=== PATIENT | female | born 1990 | race Caucasian/White ===

== ENCOUNTER 2017-08-03 23:41 | Emergency (ER) | payer MEDICAID ==
[2017-08-03 23:49] VITALS: O2SAT 96
[2017-08-04 00:18] LABS: % IMMATURE GRANULYOCYTES 0.3 % (0.0-1.1); ABSOLUTE IMMATURE GRANULOCYTES 0.04 10^3/uL (0.00-0.10); ADD DIFF? NO; ADD MORPH? NO; ADD SCAN? NO; ATYPICAL LYMPHOCYTE FLAG 10 (0-99); FRAGMENT RBC FLAG 0 (0-99); HEMATOCRIT 38.3 % (38.0-47.0); HEMOGLOBIN 13.6 g/dL (12.6-16.3); LEFT SHIFT FLG 0 (0-99); LIPEMIA HEMOLYSIS FLAG 90 (0-99); MEAN CELL HEMOGLOBIN 31.3 pg (27.9-34.1); MEAN CELL HEMOGLOBIN CONCENTR. 35.5 g/dL (32.4-36.7); MEAN PLATELET VOLUME 10.8 fL (8.7-11.7); PLATELET CLUMPS FLAG 0 (0-99); PLATELET COUNT 190 10^3/uL (150-400); RED BLOOD CELL COUNT 4.35 10^6/uL (4.18-5.33); RED CELL DISTRIBUTION WIDTH 12.4 % (11.5-15.2)
[2017-08-04] MEDS ORDERED: NS 1,000 ML IV ONE (00:37)
[2017-08-04 00:40] LABS: ANION GAP 12 mEq/L (8-16); CALCIUM 9.4 mg/dL (8.5-10.4); CARBON DIOXIDE 26 mEq/l (22-31); CHLORIDE 99 mEq/L (97-110); GLOMERULAR FILTRATION RATE > 60; GLUCOSE 109 mg/dL (70-100); POTASSIUM 3.2 mEq/L (3.5-5.2); SODIUM 137 mEq/L (134-144)
[2017-08-04] MEDS ORDERED: KETOROLAC 30 MG/1 ML SDV IVP ONE (01:21)
[2017-08-04] MEDS ORDERED: ACETAMINOPHEN 500 MG TAB PO ONE (01:21)
[2017-08-04] MEDS ORDERED: KETOROLAC 15 MG/1 ML SDV ONE (01:22)
[2017-08-04] MEDS ORDERED: ACETAMINOPHEN 500 MG TAB ONE (01:22)
--- NOTE | 2017-08-04 01:23 | EDPHY ---
H & P Stated Complaint: abd pain, fever/chills Time Seen by Provider: 08/04/17 01:06 HPI/ROS: HPI The patient presents with abdominal pain which began 2 days ago and became constant this morning at about 5:00 a.m.. The pain is in her lower abdomen, right greater than left and is worse with movement. She has taken ibuprofen and tramadol without any improvement in her symptoms. She did begin vomiting today. She has no prior history of similar pain. She denies any vaginal bleeding or discharge. She has had normal bowel movements lately. She feels feverish. She describes an abnormal sensation when voiding, however no shashank dysuria or hematuria. REVIEW OF SYSTEMS Constitutional: No fever, no chills. Eyes: No discharge. ENT: No sore throat. Cardiovascular: No chest pain, no palpitations. Respiratory: No cough, no shortness of breath. Gastrointestinal: No abdominal pain, no vomiting. Genitourinary: No hematuria. Musculoskeletal: No back pain. Skin: No rashes. Neurological: No headache. PMHx: IBS, rheumatoid arthritis, uses medical marijuana Soc Hx: Housed, here with her brother FHx: PHYSICAL General Appearance: Alert, no distress Eyes: Pupils equal and round no pallor or injection ENT, Mouth: Mucous membranes moist Respiratory: There are no retractions, lungs are clear to auscultation Cardiovascular: Regular rate and rhythm Gastrointestinal: Abdomen is soft, slightly distended, tender in right lower greater than left lower quadrant Neurological: A&O, moves all extremities Skin: Warm and dry, no rashes Musculoskeletal: Neck is supple non tender Extremities: symmetrical, full range of motion Psychiatric: Patient is oriented X 3, there is no agitation Source: Patient Exam Limitations: No limitations - Personal History LMP (Females 10-55): 15-21 Days Ago Current Tetanus/Diphtheria Vaccine: No - Medical/Surgical History Hx Asthma: No Hx Chronic Respiratory Disease: No Hx Diabetes: No Hx Cardiac Disease: No Hx Renal Disease: No Hx Cirrhosis: No Hx Alcoholism: No Hx HIV/AIDS: No Hx Splenectomy or Spleen Trauma: No Other PMH: PMHx: RA, IBS. PSHx: 2 c sections, tubal ligation, LEAP x 2 - Social History Smoking Status: Never smoked Constitutional: Initial Vital Signs Temperature (C) 37.8 C 08/03/17 23:45 Heart Rate 72 08/03/17 23:45 Respiratory Rate 14 08/03/17 23:45 Blood Pressure 129/79 H 08/03/17 23:45 O2 Sat (%) 96 08/03/17 23:45 O2 Delivery Mode Room Air Allergies/Adverse Reactions: Penicillins Allergy (Verified 08/03/17 23:45) Sulfa (Sulfonamide Antibiotics) Allergy (Verified 08/03/17 23:45) Home Medications: Medication Instructions Recorded Fluconazole [Diflucan] 200 mg PO ONCE #1 tablet 08/04/17 Nitrofurantoin Monohyd/M-Cryst 100 mg PO BID #14 capsule 08/04/17 [Macrobid 100 mg Capsule] Medical Decision Making - Diagnostics Imaging Results: Ultrasound right lower quadrant and pelvis demonstrates normal appearing appendix, no free fluid, findings consistent with polycystic ovarian syndrome, discussed with Dr. Ross of Radiology. Imaging: Discussed imaging studies w/ body recall instructor Radiologist Differential Diagnosis: This is a 27-year-old female who presents with 2 days now of progressive lower abdominal pain associated with subjective fever and vomiting. On exam, she is tender in the right lower quadrant. Differential diagnosis includes appendicitis, ovarian cyst, tubo-ovarian abscess , ovarian torsion. In the emergency department, patient was given IV fluids for vomiting as well as medication for pain. She had improvement in her symptoms to the point of complete resolution. Labs were checked and did reveal a mild leukocytosis. UA showed signs of infection. She had ultrasound performed which showed some signs of PCOS, however no acute pathology was identified. Appendix was visualized and was normal. On re-examination, her abdominal exam was benign. She feels well enough to go home and will be discharged. I have given her a dose of ceftriaxone here for presumed cystitis and will discharge her with Macrobid. She is advised to return if her pain returns in any way. I have given her follow-up for OBGYN for this finding of possible PCOS. - Data Points Laboratory Results: Laboratory Results 08/04/17 00:10 08/04/17 00:10 08/04/17 08/04/17 08/04/17 00:10 00:10 00:10 WBC 12.73 10^3/uL H 10^3/uL (3.80-9.50) RBC 4.35 10^6/uL 10^6/uL (4.18-5.33) Hgb 13.6 g/dL g/dL (12.6-16.3) Hct 38.3 % % (38.0-47.0) MCV 88.0 fL fL (81.5-99.8) MCH 31.3 pg pg (27.9-34.1) MCHC 35.5 g/dL g/dL (32.4-36.7) RDW 12.4 % % (11.5-15.2) Plt Count 190 10^3/uL 10^3/uL (150-400) MPV 10.8 fL fL (8.7-11.7) Neut % (Auto) 87.3 % H % (39.3-74.2) Lymph % (Auto) 5.3 % L % (15.0-45.0) [place] % (Auto) 6.7 % % (4.5-13.0) Eos % (Auto) 0.2 % L % (0.6-7.6) Baso % (Auto) 0.2 % L % (0.3-1.7) Nucleat RBC Rel Count 0.0 % % (0.0-0.2) Absolute Neuts (auto) 11.10 10^3/uL H 10^3/uL (1.70-6.50) Absolute Lymphs (auto) 0.68 10^3/uL L 10^3/uL (1.00-3.00) Absolute Monos (auto) 0.85 10^3/uL H 10^3/uL (0.30-0.80) Absolute Eos (auto) 0.03 10^3/uL 10^3/uL (0.03-0.40) Absolute Basos (auto) 0.03 10^3/uL 10^3/uL (0.02-0.10) Absolute Nucleated RBC 0.00 10^3/uL 10^3/uL (0-0.01) Immature Gran % 0.3 % % (0.0-1.1) Immature Gran # 0.04 10^3/uL 10^3/uL (0.00-0.10) Sodium 137 mEq/L mEq/L (134-144) Potassium 3.2 mEq/L L mEq/L (3.5-5.2) Chloride 99 mEq/L mEq/L (97-110) Carbon Dioxide 26 mEq/l mEq/l (22-31) Anion Gap 12 mEq/L mEq/L (8-16) BUN 17 mg/dL mg/dL (7-23) Creatinine 1.0 mg/dL mg/dL (0.6-1.0) Estimated GFR > 60 Glucose 109 mg/dL H mg/dL (70-100) Calcium 9.4 mg/dL mg/dL (8.5-10.4) Beta HCG, Qual NEGATIVE Urine Color Urine Appearance Urine pH Ur Specific [place] Urine Protein Urine Ketones Urine Blood Urine Nitrate Urine Bilirubin Urine Urobilinogen Ur Leukocyte Esterase Urine RBC Urine WBC Ur Epithelial Cells Urine Bacteria Urine Mucus Urine Glucose 08/04/17 00:05 WBC RBC Hgb Hct MCV MCH MCHC RDW Plt Count MPV Neut % (Auto) Lymph % (Auto) [place] % (Auto) Eos % (Auto) Baso % (Auto) Nucleat RBC Rel Count Absolute Neuts (auto) Absolute Lymphs (auto) Absolute Monos (auto) Absolute Eos (auto) Absolute Basos (auto) Absolute Nucleated RBC Immature Gran % Immature Gran # Sodium Potassium Chloride Carbon Dioxide Anion Gap BUN Creatinine Estimated GFR Glucose Calcium Beta HCG, Qual Urine Color YELLOW Urine Appearance HAZY Urine pH 7.0 (5.0-7.5) Ur Specific [place] 1.006 (1.002-1.030) Urine Protein NEGATIVE (NEGATIVE) Urine Ketones NEGATIVE (NEGATIVE) Urine Blood NEGATIVE (NEGATIVE) Urine Nitrate NEGATIVE (NEGATIVE) Urine Bilirubin NEGATIVE (NEGATIVE) Urine Urobilinogen NEGATIVE EU EU (0.2-1.0) Ur Leukocyte Esterase 2+ H (NEGATIVE) Urine RBC 1-3 /hpf /hpf (0-3) Urine WBC 15-25 /hpf H /hpf (0-3) Ur Epithelial Cells 2+ /lpf H /lpf (NONE-1+) Urine Bacteria 2+ /hpf H /hpf (NONE SEEN) Urine Mucus TRACE /lpf /lpf (NONE-1+) Urine Glucose NEGATIVE (NEGATIVE) Medications Given: Discontinued Medications Acetaminophen (Tylenol) 1,000 mg PO EDNOW ONE Stop: 08/04/17 01:22 Last Admin: 08/04/17 01:24 Dose: 1,000 mg Hydrocodone Bitart/Acetaminophen ([place] 5/325mg Prepack#6) 1 btl TAKEHOME EDNOW ONE Stop: 08/04/17 03:31 Last Admin: 08/04/17 03:52 Dose: 1 btl Sodium Chloride (Ns) 1,000 mls @ 0 mls/hr IV ONCE ONE; Wide Open PRN Reason: Protocol Stop: 08/04/17 00:38 Last Admin: 08/04/17 00:00 Dose: 1,000 mls Ceftriaxone Sodium/Dextrose (Rocephin 1 Gm (Premix)) 50 mls @ 100 mls/hr IV EDNOW ONE PRN Reason: Protocol Stop: 08/04/17 03:49 Last Admin: 08/04/17 03:30 Dose: 50 mls Ketamine HCl (Ketamine) 20 mg IVP EDNOW ONE Stop: 08/04/17 01:57 Last Admin: 08/04/17 01:57 Dose: 20 mg Ketorolac Tromethamine (Toradol) 15 mg IVP EDNOW ONE Stop: 08/04/17 01:22 Last Admin: 08/04/17 01:24 Dose: 15 mg Departure - Departure Disposition: Home, Routine, Self-Care Clinical Impression: Lower abdominal pain UTI (urinary tract infection) Qualifiers: Urinary tract infection type: acute cystitis Hematuria presence: without hematuria Qualified Code(s): N30.00 - Acute cystitis without hematuria Condition: Good Instructions: Hydrocodone/Acetaminophen (By mouth), Urinary Tract Infection in Women (ED) Additional Instructions: Please return to the emergency room if your still having pain tomorrow. You should call the OBGYN Dr. Esquivel to arrange for a follow-up appointment. Referrals: BANDAR MARTINS [Other] - As per Instructions Briana Esquivel MD [Medical Doctor] - As per Instructions Stand Alone Forms: Work Excuse Prescriptions: Fluconazole [Diflucan] 200 mg PO ONCE #1 tablet Nitrofurantoin Monohyd/M-Cryst [Macrobid 100 mg Capsule] 100 mg PO BID #14 capsule
[2017-08-04 01:34] LABS: COLOR YELLOW; LEUKOCYTE ESTERASE,URINE 2+ (NEGATIVE); NITRITE,URINE NEGATIVE (NEGATIVE)
[2017-08-04 01:39] LABS: BACTERIA 2+ /hpf (NONE SEEN); MUCUS TRACE /lpf (NONE-1+); WBC,URINE 15-25 /hpf (0-3)
[2017-08-04] MEDS ORDERED: KETAMINE 100 MG/10 ML SYR ONE (01:53)
[2017-08-04] MEDS ORDERED: KETAMINE 500 MG/10 ML VIAL IVP ONE (01:56)
[2017-08-04] MEDS ORDERED: HYDROCOD/APAP 5/325 PREPACK#6 BTL TAKEHOME ONE (03:30)
[2017-08-04 03:35] VITALS: RESP 16; TEMP 97.9
[2017-08-04 03:58] VITALS: BP 126/87; PULSE 69
== END 2017-08-04 03:58 | disposition home or self-care (01) ==
DX: N30.00 Acute cystitis without hematuria (principal); B96.89 Other specified bacterial agents as the cause of diseases classified elsewhere; E86.9 Volume depletion, unspecified
CPT/HCPCS: 96365; J0696; J1885

== ENCOUNTER 2018-05-07 13:03 | Emergency (ER) | payer MEDICAID ==
[2018-05-07 13:12] VITALS: BP 122/70
--- NOTE | 2018-05-07 14:18 | EDPHY ---
H & P Stated Complaint: lethargy, wound on R cheek Time Seen by Provider: 05/07/18 14:06 HPI/ROS: CHIEF COMPLAINT: Facial pain and swelling HISTORY OF PRESENT ILLNESS: 19-year-old female presents with right-sided facial pain and swelling. This morning she awoke with itchiness right cheek. Since then she has had gradually increasing pain and swelling. The itchiness has resolved. She also has an acne breakout, associated with her menstrual period. No fever. REVIEW OF SYSTEMS: complete 10 point ROS negative except at noted in the HPI - Personal History LMP (Females 10-55): 22-28 Days Ago Current Tetanus/Diphtheria Vaccine: No Current Tetanus Diphtheria and Acellular Pertussis (TDAP): No - Medical/Surgical History Hx Asthma: No Hx Chronic Respiratory Disease: No Hx Diabetes: No Hx Cardiac Disease: No Hx Renal Disease: No Hx Cirrhosis: No Hx Alcoholism: No Hx HIV/AIDS: No Hx Splenectomy or Spleen Trauma: No Other PMH: PMHx: RA, IBS. PSHx: 2 c sections, tubal ligation, LEAP x 2 - Social History Smoking Status: Never smoked - Physical Exam Exam: General Appearance: Alert, pleasant; this patient is not lethargic Eyes: Pupils equal and round ENT, Mouth: Acne on the lower face, there is an area of erythema warmth and tenderness on the right lower cheek, no fluctuance. Mucous membranes moist Neck: Normal inspection, no adenopathy Neurological: A&O, nonfocal, normal gait Skin: Warm and dry Psychiatric: Mood and affect normal Constitutional: Initial Vital Signs Temperature (C) 36.7 C 05/07/18 13:09 Heart Rate 62 05/07/18 13:09 Respiratory Rate 16 05/07/18 13:09 Blood Pressure 122/70 H 05/07/18 13:09 O2 Sat (%) 93 05/07/18 13:09 O2 Delivery Mode Room Air Allergies/Adverse Reactions: Penicillins Allergy (Verified 05/07/18 13:09) Sulfa (Sulfonamide Antibiotics) Allergy (Verified 05/07/18 13:09) Home Medications: Medication Instructions Recorded Doxycycline Hyclate 100 mg PO BID #20 tablet 05/07/18 Medical Decision Making ED Course/Re-evaluation: This pt has a breakout of acne, and one area of facial cellulitis on the right cheek. She is nontoxic-appearing and certainly is not lethargic. Prescription for doxycycline written. Departure - Departure Disposition: Home, Routine, Self-Care Clinical Impression: Facial abscess Condition: Good Instructions: Abscess (ED) Additional Instructions: Warm compresses 3-4 times daily. Return for worsening symptoms or any concerns. Referrals: Juma Mullins DO [Medical Doctor] - Follow Up Only If Needed Prescriptions: Doxycycline Hyclate 100 mg PO BID #20 tablet
== END 2018-05-07 14:33 | disposition home or self-care (01) ==
DX: L02.01 Cutaneous abscess of face (principal)

== ENCOUNTER 2018-05-28 22:07 | Emergency (ER) | payer MEDICAID ==
--- NOTE | 2018-05-28 22:21 | EDPHY ---
H & P Stated Complaint: BACK PAIN/PAINFUL URINATION Time Seen by Provider: 05/28/18 22:20 HPI/ROS: HPI CHIEF COMPLAINT: Dysuria, urinary frequency, suprapubic pain HISTORY OF PRESENT ILLNESS: A 27-year-old female, otherwise healthy without any significant medical history, presents emergency room stating that she thinks she has a urinary tract infection. She reports that the past 24 hr she has had dysuria, urinary frequency and some suprapubic discomfort. She denies being . States last menstrual period was at the into the month and normal for her. She denies any significant vaginal discharge. Denies vaginal discomfort. Main complaint suprapubic pain, dysuria and frequency. Denies rectal pain or abdominal pain. Denies fever vomiting. Patient reports that she has a monogamous relationship with her who is at bedside. Past Medical History: Denies medical history Past Surgical History: , tubal ligation Social History: Denies drugs alcohol tobacco. Family History: Noncontributory ROS REVIEW OF SYSTEMS: A comprehensive 10 point review of systems is otherwise negative aside from elements mentioned in the history of present illness. Exam Constitutional triage nursing summary reviewed, vital signs reviewed, awake/ alert. Eyes normal conjunctivae and sclera, EOMI, PERRLA. HENT normal inspection, atraumatic, moist mucus membranes, no epistaxis, neck supple/ no meningismus, no raccoon eyes. Respiratory clear to auscultation bilaterally, normal breath sounds, no respiratory distress, no wheezing. Cardiovascular rate normal, regular rhythm, no murmur, no edema, distal pulses normal. Gastrointestinal mild tender palpation suprapubic, no rebound, no guarding, normal bowel sounds, no distension, no pulsatile mass. Genitourinary no CVA tenderness. Musculoskeletal no midline vertebral tenderness, full range of motion, no calf swelling, no tenderness of extremities, no meningismus, good pulses, neurovascularly intact. Skin pink, warm, & dry, no rash, skin atraumatic. Neurologic awake, alert and oriented x 3, AAOx3, moves all 4 extremities equally, motor intact, sensory intact, CN II-XII intact, normal cerebellar, normal vision, normal speech. Psychiatric normal mood/affect. Heme/Lymph/Immune no lymphadenopathy. Differential Diagnosis: Includes but is not limited to in a particular order cystitis, pyelonephritis, , except proceed, vaginal infection Medical Decision Making: Plan for this patient check UA. If urinalysis unremarkable will need to do a pelvic exam to rule out vaginal infection. Re-evaluation: Given this patient's urinalysis reviewed unremarkable I did perform a pelvic exam. Pelvic exam: Rosario RN at bedside as dispensary technician. No external lesions visualized. Os closed. No significant CMT no significant discharge no lesions. Does have some left-sided adnexal tenderness on exam, no evidence of PID on exam. Unremarkable pelvic exam. Swab sent. On re-examination she does have some left adnexal pain. Will proceed with ultrasound of her ovaries. Additionally IV establishment for pain control, and blood work. Wet prep reviewed shows BV. Will be started on Flagyl. 1st dose given in the emergency room. Discussed in detail bowel patient's ultrasound results and urinalysis and blood work. Do recommend she gets treated for BV with Flagyl. Does not drink alcohol taking this antibiotic. Gonorrhea chlamydia sent. Still pending. Urinalysis reveals no evidence UTI Ultrasound reviewed shows most likely polycystic ovarian system. Good blood flow no evidence of torsion. No large cyst. I do recommend she follows up with OBGYN I have given a referral for this. Ibuprofen for pain control Return precautions discussed with her she understands return emergency room she develops worsening abdominal pain fever vomiting. Source: Patient - Personal History LMP (Females 10-55): 8-14 Days Ago Current Tetanus Diphtheria and Acellular Pertussis (TDAP): Yes - Medical/Surgical History Hx Asthma: No Hx Chronic Respiratory Disease: No Hx Diabetes: No Hx Cardiac Disease: No Hx Renal Disease: No Hx Cirrhosis: No Hx Alcoholism: No Hx HIV/AIDS: No Hx Splenectomy or Spleen Trauma: No Other PMH: PMHx: RA, IBS. PSHx: 2 c sections, tubal ligation, LEAP x 2 - Social History Smoking Status: Never smoked Constitutional: Initial Vital Signs Temperature (C) 37.0 C 05/28/18 22:10 Heart Rate 68 05/28/18 22:10 Respiratory Rate 16 05/28/18 22:10 Blood Pressure 124/88 H 05/28/18 22:10 O2 Sat (%) 92 05/28/18 22:10 O2 Delivery Mode Room Air Allergies/Adverse Reactions: Penicillins Allergy (Verified 05/07/18 13:09) Sulfa (Sulfonamide Antibiotics) Allergy (Verified 05/07/18 13:09) Home Medications: Medication Instructions Recorded Ibuprofen [Motrin (*)] 800 mg PO Q6-8PRN #14 tab 05/28/18 metroNIDAZOLE [Flagyl 500 mg (*)] 500 mg PO BID #20 tab 05/28/18 Medical Decision Making - Diagnostics Imaging Results: Imaging Impressions Pelvic/Renal Ultrasound 05/28/18 22:45 Impression: Multiple follicular cysts as well as increased ovarian volume, right greater than left raises the possibility of polycystic ovary syndrome with clinical correlation recommended. Results called and discussed with Rick Reyez MD on 05/28/2018 at 23:35. - Data Points Laboratory Results: Laboratory Results 05/28/18 22:56 05/28/18 22:56 05/28/18 05/28/18 05/28/18 22:56 22:56 22:56 WBC 8.05 10^3/uL 10^3/uL (3.80-9.50) RBC 4.18 10^6/uL 10^6/uL (4.18-5.33) Hgb 12.9 g/dL g/dL (12.6-16.3) Hct 35.9 % L % (38.0-47.0) MCV 85.9 fL fL (81.5-99.8) MCH 30.9 pg pg (27.9-34.1) MCHC 35.9 g/dL g/dL (32.4-36.7) RDW 12.5 % % (11.5-15.2) Plt Count 220 10^3/uL 10^3/uL (150-400) MPV 10.8 fL fL (8.7-11.7) Neut % (Auto) 64.6 % % (39.3-74.2) Lymph % (Auto) 20.7 % % (15.0-45.0) [place] % (Auto) 10.1 % % (4.5-13.0) Eos % (Auto) 4.0 % % (0.6-7.6) Baso % (Auto) 0.5 % % (0.3-1.7) Nucleat RBC Rel Count 0.0 % % (0.0-0.2) Absolute Neuts (auto) 5.20 10^3/uL 10^3/uL (1.70-6.50) Absolute Lymphs (auto) 1.67 10^3/uL 10^3/uL (1.00-3.00) Absolute Monos (auto) 0.81 10^3/uL H 10^3/uL (0.30-0.80) Absolute Eos (auto) 0.32 10^3/uL 10^3/uL (0.03-0.40) Absolute Basos (auto) 0.04 10^3/uL 10^3/uL (0.02-0.10) Absolute Nucleated RBC 0.00 10^3/uL 10^3/uL (0-0.01) Immature Gran % 0.1 % % (0.0-1.1) Immature Gran # 0.01 10^3/uL 10^3/uL (0.00-0.10) Sodium 140 mEq/L mEq/L (135-145) Potassium 3.3 mEq/L mEq/L (3.3-5.0) Chloride 105 mEq/L mEq/L (97-110) Carbon Dioxide 24 mEq/l mEq/l (22-31) Anion Gap 11 mEq/L mEq/L (8-16) BUN 16 mg/dL mg/dL (7-23) Creatinine 0.8 mg/dL mg/dL (0.6-1.0) Estimated GFR > 60 Glucose 79 mg/dL mg/dL (70-100) Calcium 9.5 mg/dL mg/dL (8.5-10.4) Total Bilirubin 0.7 mg/dL mg/dL (0.1-1.4) Conjugated Bilirubin 0.2 mg/dL mg/dL (0.0-0.5) Unconjugated Bilirubin 0.5 mg/dL mg/dL (0.0-1.1) AST 19 IU/L IU/L (14-46) ALT 30 IU/L IU/L (9-52) Alkaline Phosphatase 52 IU/L IU/L (38-126) Total Protein 6.7 g/dL g/dL (6.3-8.2) Albumin 4.2 g/dL g/dL (3.5-5.0) Lipase 47 IU/L IU/L (23-300) Beta HCG, Qual Cancelled Urine Color Urine Appearance Urine pH Ur Specific [place] Urine Protein Urine Ketones Urine Blood Urine Nitrate Urine Bilirubin Urine Urobilinogen Ur Leukocyte Esterase Urine Glucose Urine Test Trichomonas (Wet Prep) Urine Opiates Screen Urine Barbiturates Ur Phencyclidine Scrn Ur Amphetamine Screen U Benzodiazepines Scrn Urine Cocaine Screen U Marijuana (THC) Screen N.gonorrhoeae RNA (TMA) 05/28/18 05/28/18 05/28/18 22:45 22:45 22:30 WBC RBC Hgb Hct MCV MCH MCHC RDW Plt Count MPV Neut % (Auto) Lymph % (Auto) [place] % (Auto) Eos % (Auto) Baso % (Auto) Nucleat RBC Rel Count Absolute Neuts (auto) Absolute Lymphs (auto) Absolute Monos (auto) Absolute Eos (auto) Absolute Basos (auto) Absolute Nucleated RBC Immature Gran % Immature Gran # Sodium Potassium Chloride Carbon Dioxide Anion Gap BUN Creatinine Estimated GFR Glucose Calcium Total Bilirubin Conjugated Bilirubin Unconjugated Bilirubin AST ALT Alkaline Phosphatase Total Protein Albumin Lipase Beta HCG, Qual Urine Color Urine Appearance Urine pH Ur Specific [place] Urine Protein Urine Ketones Urine Blood Urine Nitrate Urine Bilirubin Urine Urobilinogen Ur Leukocyte Esterase Urine Glucose Urine Test Trichomonas (Wet Prep) 3+ BACTERIA H Urine Opiates Screen NEGATIVE (NEGATIVE) Urine Barbiturates NEGATIVE (NEGATIVE) Ur Phencyclidine Scrn NEGATIVE (NEGATIVE) Ur Amphetamine Screen NEGATIVE (NEGATIVE) U Benzodiazepines Scrn NEGATIVE (NEGATIVE) Urine Cocaine Screen NEGATIVE (NEGATIVE) U Marijuana (THC) Screen NON-NEGATIVE H (NEGATIVE) N.gonorrhoeae RNA (TMA) Pending 05/28/18 05/28/18 22:30 22:13 WBC RBC Hgb Hct MCV MCH MCHC RDW Plt Count MPV Neut % (Auto) Lymph % (Auto) [place] % (Auto) Eos % (Auto) Baso % (Auto) Nucleat RBC Rel Count Absolute Neuts (auto) Absolute Lymphs (auto) Absolute Monos (auto) Absolute Eos (auto) Absolute Basos (auto) Absolute Nucleated RBC Immature Gran % Immature Gran # Sodium Potassium Chloride Carbon Dioxide Anion Gap BUN Creatinine Estimated GFR Glucose Calcium Total Bilirubin Conjugated Bilirubin Unconjugated Bilirubin AST ALT Alkaline Phosphatase Total Protein Albumin Lipase Beta HCG, Qual Urine Color YELLOW Urine Appearance CLEAR Urine pH 6.0 (5.0-7.5) Ur Specific [place] 1.011 (1.002-1.030) Urine Protein NEGATIVE (NEGATIVE) Urine Ketones NEGATIVE (NEGATIVE) Urine Blood NEGATIVE (NEGATIVE) Urine Nitrate NEGATIVE (NEGATIVE) Urine Bilirubin NEGATIVE (NEGATIVE) Urine Urobilinogen NEGATIVE EU EU (0.2-1.0) Ur Leukocyte Esterase NEGATIVE (NEGATIVE) Urine Glucose NEGATIVE (NEGATIVE) Urine Test NEGATIVE Trichomonas (Wet Prep) Urine Opiates Screen Urine Barbiturates Ur Phencyclidine Scrn Ur Amphetamine Screen U Benzodiazepines Scrn Urine Cocaine Screen U Marijuana (THC) Screen N.gonorrhoeae RNA (TMA) Medications Given: Discontinued Medications Sodium Chloride (Ns) 1,000 mls @ 0 mls/hr IV EDNOW ONE; Wide Open PRN Reason: Protocol Stop: 05/28/18 22:45 Last Admin: 05/28/18 22:57 Dose: 1,000 mls Ketorolac Tromethamine (Toradol) 15 mg IVP EDNOW ONE Stop: 05/28/18 22:47 Last Admin: 05/28/18 22:57 Dose: 15 mg Metronidazole (Flagyl) 500 mg PO EDNOW ONE PRN Reason: Protocol Stop: 05/28/18 23:11 Last Admin: 05/28/18 23:29 Dose: 500 mg Ondansetron HCl (Zofran) 4 mg IVP EDNOW ONE Stop: 05/28/18 22:45 Last Admin: 05/28/18 22:57 Dose: 4 mg Departure - Departure Disposition: Home, Routine, Self-Care Clinical Impression: Vaginitis Qualifiers: Chronicity: acute Qualified Code(s): N76.0 - Acute vaginitis Ovarian cyst Qualifiers: Laterality: unspecified laterality Qualified Code(s): N83.209 - Unspecified ovarian cyst, unspecified side Condition: Good Instructions: Vaginitis (ED), Ovarian Cyst (ED), Polycystic Ovarian Syndrome ( ED) Additional Instructions: 1. Antibiotic as prescribed. 2. Do not drink alcohol while taking this antibiotic 3. Return emergency room if there is worsening abdominal pain pelvic pain fever vomiting. 4. Follow up with OBGYN call for follow-up appointment. Referrals: NONE *PRIMARY CARE P,. [Primary Care Provider] - As per Instructions Nicky Sheridan MD [Medical Doctor] - As per Instructions Prescriptions: Ibuprofen [Motrin (*)] 800 mg PO Q6-8PRN #14 tab metroNIDAZOLE [Flagyl 500 mg (*)] 500 mg PO BID #20 tab
[2018-05-28] MEDS ORDERED: NS 1,000 ML IV ONE (22:44)
[2018-05-28] MEDS ORDERED: ONDANSETRON 4 MG/2 ML VIAL IVP ONE (22:44)
[2018-05-28] MEDS ORDERED: KETOROLAC 15 MG/1 ML SDV IVP ONE (22:46)
[2018-05-28 23:06] LABS: PLATELET COUNT 220 10^3/uL (150-400)
[2018-05-28] MEDS ORDERED: metroNIDAZOLE 500 MG TAB PO ONE (23:10)
[2018-05-29 00:05] VITALS: BP 122/76
== END 2018-05-29 00:04 | disposition home or self-care (01) ==
DX: N76.0 Acute vaginitis (principal); N83.201 Unspecified ovarian cyst, right side; E86.9 Volume depletion, unspecified
CPT/HCPCS: 80305; 96374; J1885; J2405

== ENCOUNTER 2018-05-29 16:02 | Emergency (ER) | payer MEDICAID ==
[2018-05-29 16:14] VITALS: BP 120/69
--- NOTE | 2018-05-29 16:14 | EDPHY ---
H & P Source: Patient, Family (), Old records Exam Limitations: No limitations - Medical/Surgical History Hx Asthma: No Hx Chronic Respiratory Disease: No Hx Diabetes: No Hx Cardiac Disease: No Hx Renal Disease: No Hx Cirrhosis: No Hx Alcoholism: No Hx HIV/AIDS: No Hx Splenectomy or Spleen Trauma: No Other PMH: PMHx: RA, IBS. PSHx: 2 c sections, tubal ligation, LEAP x 2 - Social History Smoking Status: Never smoked Time Seen by Provider: 05/29/18 16:12 HPI/ROS: HPI: This is a 27-year-old female who presents with Chief Complaint: Suprapubic pain Location: Suprapubic Quality: Pain Duration: 2 days Signs and Symptoms: No bleeding, no radiation, no numbness, no weakness, no tingling, no incontinence, no decreased range of motion, no swelling, + pain, no fever Timing: acute, constant Severity:09/05 Context: Patient presents today for her 2nd ER visit in 24 hr with complaints of suprapubic pain that is constant, nonradiating in nature and severe. She is extremely tearful and in moderate distress that she did not receive pain medications yesterday in the ER other than ibuprofen. She reports that ibuprofen is not relieving her pain. She had a full workup in the ER including laboratory findings that workup grossly unremarkable, a pelvic ultrasound that showed polycystic ovarian syndrome, good blood flow, no evidence of torsion, no large cyst. Urinalysis was unremarkable. Pelvic exam was performed and swab sent showing positive bacterial vaginosis and patient given Flagyl for which she reports that she is compliant on this as well as observing pelvic rest. She is only in the emergency room today to receive pain medications. She was able to eat lunch and dinner without difficulty and reports drinking fluids. She denies any fever, nausea, vomiting, diarrhea, vaginal bleeding. She reports that her urinary symptoms have resolved. Modifying Factors: Ibuprofen no relief Comment: ROS: see HPI Constitutional: No fever, no chills, no weight loss Eyes: No blurred vision Respiratory: No shortness of breath, no cough Cardiovascular: No chest pain Gastrointestinal: No nausea, no vomiting no diarrhea Genitourinary: No dysuria Extremities: No myalgias Neurologic: No weakness, no numbness Skin: No rashes Hematologic: No bruising, no bleeding MEDICAL/SURGICAL/SOCIAL HISTORY: PMHx: RA, IBS, marijuana user PSHx: 2 c sections, tubal ligation, LEAP x 2 Social history: . CONSTITUTIONAL: Extremely tearful nontoxic-appearing adult white female, awake and alert, moderate distress HEENT: Atraumatic and normocephalic, PERRL, EOMI. Nares patent; no rhinorrhea; no nasal mucosal edema. Tympanic membranes clear. Oropharynx clear, no exudate and moist pink mucosa. Airway patent. No lymphadenopathy. No meningismus. Cardiovascular: Normal S1/S2, regular rate, regular rhythm, without murmur rub or gallop. PULMONARY/CHEST: Symmetrical and nontender. Clear to auscultation bilaterally. Good air movement. No accessory muscle usage. ABDOMEN: Soft, nondistended, nontender, no rebound, no guarding, no peritoneal signs, no masses or organomegaly. No CVAT. PELVIC: No indication to perform again is performed yesterday. EXTREMITIES: 2/2 pulses, strength 5/5, no deformities, no clubbing, no cyanosis or edema. NEUROLOGICAL: no focal neuro deficits. GCS 15. SKIN: Warm and dry, no erythema. no rash. Good capillary refill. (Charisse Fritz) Constitutional: Initial Vital Signs Temperature (C) 36.9 C 05/29/18 16:12 Heart Rate 66 05/29/18 16:12 Respiratory Rate 16 05/29/18 16:12 Blood Pressure 120/69 05/29/18 16:12 O2 Sat (%) 96 05/29/18 16:12 O2 Delivery Mode Room Air Allergies/Adverse Reactions: Penicillins Allergy (Verified 05/07/18 13:09) Sulfa (Sulfonamide Antibiotics) Allergy (Verified 05/07/18 13:09) Home Medications: Medication Instructions Recorded Ibuprofen [Motrin (*)] 800 mg PO Q6-8PRN #14 tab 05/28/18 metroNIDAZOLE [Flagyl 500 mg (*)] 500 mg PO BID #20 tab 05/28/18 Cyclobenzaprine [Flexeril 10 MG 10 mg PO Q8 PRN #15 tab 05/29/18 (*)] oxyCODONE/APAP 5/325 [Percocet 1 - 2 tab PO Q4H PRN #10 tab 05/29/18 5/325 (*)] Medical Decision Making ED Course/Re-evaluation: There is no indication to repeat workup. Vital signs are stable upon review. Patient given p.o. Valium 5 mg and p.o. Percocet upon arrival. She will be given a prescription for Flexeril and 10 tablets of Percocet. She is to continue to take Flagyl as directed and follow up with OBGYN. This patient was seen under the supervision of my secondary supervising physician. I evaluated care for this patient independently. Discussed this patient with Dr. Estes who did not see the patient. (Charisse Fritz) The patient was evaluated and managed by the physician assistant facility manager. I have reviewed this chart and I agree with the findings and plan of care as documented , as indicated by my signature. I am the secondary supervising physician. ( Kate Estes) Differential Diagnosis: Differential diagnosis includes but is not limited to urinary tract infection, interstitial cystitis, polycystic ovarian syndrome, chronic pain, vaginitis. (Charisse Fritz) - Data Points Medications Given: Discontinued Medications Diazepam (Valium) 5 mg PO EDNOW ONE Stop: 05/29/18 16:16 Last Admin: 05/29/18 16:21 Dose: 5 mg Oxycodone/Acetaminophen (Percocet 5/325) 1 tab PO EDNOW ONE Stop: 05/29/18 16:17 Last Admin: 05/29/18 16:21 Dose: 1 tab Departure - Departure Disposition: Home, Routine, Self-Care Clinical Impression: PCOS (polycystic ovarian syndrome), Bacterial vaginitis, Uncontrolled pain Condition: Good Instructions: Bacterial Vaginosis (ED), Ovarian Cyst (ED), Polycystic Ovarian Syndrome (ED) Additional Instructions: 1. Please take Flagyl as prescribed. Do not skip any doses. 2. Do not drink alcohol while taking this antibiotic. 3. Take Tylenol 650 mg every 4 hours and/or Ibuprofen 600 mg every 8 hours with food as needed for pain. 4. Use Flexeril every 8 hr as needed for cramping. 5. Use Percocet every 6 hours as needed for severe/break through pain. 6. Do not use Tylenol and Percocet concomitantly. 7. Please observe pelvic rest for 10-14 days or until all pain has resolved. Referrals: Nicky Sheridan MD [Medical Doctor] - 5-7 days, call for appt. Prescriptions: Cyclobenzaprine [Flexeril 10 MG (*)] 10 mg PO Q8 PRN #15 tab PRN Reason: Spasms oxyCODONE/APAP 5/325 [Percocet 5/325 (*)] 1 - 2 tab PO Q4H PRN #10 tab PRN Reason: Pain, Severe
[2018-05-29] MEDS ORDERED: DIAZEPAM 5 MG TAB PO ONE (16:15)
[2018-05-29] MEDS ORDERED: OXYCODONE/APAP 5/325 TAB PO ONE (16:16)
== END 2018-05-29 17:03 | disposition home or self-care (01) ==
DX: E28.2 Polycystic ovarian syndrome (principal); N76.0 Acute vaginitis; B96.89 Other specified bacterial agents as the cause of diseases classified elsewhere

== ENCOUNTER 2018-06-06 18:42 | Emergency (ER) | payer MEDICAID ==
--- NOTE | 2018-06-06 19:16 | EDPHY ---
General Time Seen by Provider: 06/06/18 19:06 Narrative: CHIEF COMPLAINT: Pelvic pain HISTORY OF PRESENT ILLNESS: Patient presents with complaints of abdominal pelvic pain. This is lower abdominal pain. This has been going on since May 28 but acutely worsened today on the left side. She reports being seen here on the 12 30, being told she has polycystic ovarian syndrome. She is also diagnosed with bacterial vaginosis and treated with metronidazole, which she is nearly completed. She has had no fever, flank pain or vomiting. She has had some nausea. Her vaginal complaints of resolved. She is here because of lower abdominal pain that has worsened, particularly on the left side earlier today. She has an appointment on Monday with a tail trimmer. She has a history of uterine cancer and cervical cancer, that she has concern for the pain. She has no chest pain or shortness of breath. No cough. No headache. No neck pain or stiffness. No other associated complaints or modifying factors. REVIEW OF SYSTEMS: Ten systems reviewed and are negative unless otherwise noted in the HPI PCP: None SPECIALISTS: Scheduled to see tail trimmer on Monday here [facility] PAST MEDICAL HISTORY: Uterine cancer 2010, cervical cancer 2006, ovarian cysts rheumatoid arthritis, irritable bowel syndrome PAST SURGICAL HISTORY: leep x2, tubal ligation, section x2 SOCIAL HISTORY: Nonsmoker. Lives here independently with her spouse. Currently attending school for naturopathic medicine FAMILY HISTORY: Noncontributory EXAMINATION General Appearance: Alert, no distress. Well-developed well-nourished. Head: normocephalic, atraumatic Eyes: Pupils equal and round, no conjunctival pallor or injection ENT, Mouth: Mucous membranes moist. Airway patent Neck: Normal inspection, supple, non-tender Respiratory: Lungs are clear to auscultation Cardiovascular: Regular rate and rhythm. No murmur Gastrointestinal: Abdomen is soft and nondistended. There is suprapubic tenderness. No guarding. No tympany. No palpable masses. No rigidity. No CVA tenderness. Nonacute abdomen Neurological: A&O, nonfocal, normal gait Skin: Warm and dry, no rash multiple tattoos. No cellulitis. Extremities: Nontender, no pedal edema. Symmetric range of motion. Psychiatric: Mood and affect normal DIFFERENTIAL DIAGNOSES: Including but not limited to ovarian cyst, ovarian torsion, PID, enteritis, colitis MDM: 7:15 p.m. Lower abdominal pain that has been ongoing since May 28. Abdominal exam is benign and nonacute. Vital signs are within normal limits. I have ordered laboratory studies and urinalysis and I will review her previous records from recent. 7:30 p.m. I have reviewed her previous records in ED visits. She has been diagnosed with possible polycystic ovarian syndrome. This does explain her pain and clinically correlate to the location of her pain. I do not feel she has a surgical abdomen at this time. Laboratory studies are pending. 8:00 p.m. Patient re-evaluated. Her pain is improved but not resolved. She is concerned because she does have a sudden change in pain in the left lower pelvis that concerns her. I do agree that this is an acute pain and thus an ultrasound the pelvis is warranted to rule out torsion. 9:30 p.m. Notified by radiologist Dr. Perez. Ultrasound reveals no evidence of torsion but multiple cyst of the ovaries bilaterally. Other findings as documented. 9:40 p.m. Patient re-evaluated. I discussed the ultrasound findings with her. She has requested a dose of peridium but would like to go home. She will be discharged with short course of pain medication and Naprosyn. We discussed follow up with primary care physician and her appointment on Monday with gynecology. We discussed ED precautions for worsening pain, flank pain, nausea, vomiting. She will continue to finish her metronidazole. She is discharged home stable condition. SUPERVISION: Patient was independently examined, but I discussed the case with my secondary supervising physician Dr. Ventura - Diagnostics Imaging Results: Imaging Impressions Pelvic/Renal Ultrasound 06/06/18 20:15 Impression: 1. No ovarian torsion. 2. Partially collapsed complex right ovarian 1.8 x 1.6 x 1.5 cm probable corpus luteum cyst. 3. Possible left postsurgical rib. Findings and recommendations discussed with Emergency Department physician, Bryan Franklin at 21:30 hour, 06/06/2018. Final report concurs with initial preliminary interpretation. - History Smoking Status: Never smoked - Objective Vital Signs: Initial Vital Signs Temperature (C) 98.2 F 06/06/18 18:44 Heart Rate 78 06/06/18 18:44 Respiratory Rate 16 06/06/18 18:44 Blood Pressure 123/74 H 06/06/18 18:44 O2 Sat (%) 96 06/06/18 18:44 O2 Delivery Mode Room Air Allergies/Adverse Reactions: Penicillins Allergy (Verified 05/07/18 13:09) Sulfa (Sulfonamide Antibiotics) Allergy (Verified 05/07/18 13:09) Home Medications: Medication Instructions Recorded Ibuprofen [Motrin (*)] 800 mg PO Q6-8PRN #14 tab 05/28/18 metroNIDAZOLE [Flagyl 500 mg (*)] 500 mg PO BID #20 tab 05/28/18 Cyclobenzaprine [Flexeril 10 MG 10 mg PO Q8 PRN #15 tab 05/29/18 (*)] oxyCODONE/APAP 5/325 [Percocet 1 - 2 tab PO Q4H PRN #10 tab 05/29/18 5/325 (*)] Naproxen [Naprosyn] 500 mg PO BID #20 tablet 06/06/18 oxyCODONE HCL/ACETAMINOPHEN 1 each PO Q4-6PRN PRN #9 tablet 06/06/18 [Percocet 5-325 mg Tablet] Laboratory Results: Laboratory Results 06/06/18 19:25 06/06/18 19:25 06/06/18 06/06/18 06/06/18 19:45 19:25 19:25 WBC RBC Hgb Hct MCV MCH MCHC RDW Plt Count MPV Neut % (Auto) Lymph % (Auto) Alexander % (Auto) Eos % (Auto) Baso % (Auto) Nucleat RBC Rel Count Absolute Neuts (auto) Absolute Lymphs (auto) Absolute Monos (auto) Absolute Eos (auto) Absolute Basos (auto) Absolute Nucleated RBC Immature Gran % Immature Gran # Sodium 136 mEq/L mEq/L (135-145) Potassium 3.6 mEq/L mEq/L (3.3-5.0) Chloride 103 mEq/L mEq/L (97-110) Carbon Dioxide 22 mEq/l mEq/l (22-31) Anion Gap 11 mEq/L mEq/L (8-16) BUN 15 mg/dL mg/dL (7-23) Creatinine 0.8 mg/dL mg/dL (0.6-1.0) Estimated GFR > 60 Glucose 105 mg/dL H mg/dL (70-100) Calcium 9.4 mg/dL mg/dL (8.5-10.4) Total Bilirubin 0.3 mg/dL mg/dL (0.1-1.4) Conjugated Bilirubin 0.2 mg/dL mg/dL (0.0-0.5) Unconjugated Bilirubin 0.1 mg/dL mg/dL (0.0-1.1) AST 28 IU/L IU/L (14-46) ALT 47 IU/L IU/L (9-52) Alkaline Phosphatase 59 IU/L IU/L (38-126) Total Protein 6.6 g/dL g/dL (6.3-8.2) Albumin 4.2 g/dL g/dL (3.5-5.0) Lipase 213 IU/L IU/L (23-300) Beta HCG, Qual NEGATIVE Urine Color YELLOW Urine Appearance CLEAR Urine pH 7.0 (5.0-7.5) Ur Specific [place] 1.004 (1.002-1.030) Urine Protein NEGATIVE (NEGATIVE) Urine Ketones NEGATIVE (NEGATIVE) Urine Blood NEGATIVE (NEGATIVE) Urine Nitrate NEGATIVE (NEGATIVE) Urine Bilirubin NEGATIVE (NEGATIVE) Urine Urobilinogen NEGATIVE EU EU (0.2-1.0) Ur Leukocyte Esterase NEGATIVE (NEGATIVE) Urine RBC NONE SEEN /hpf /hpf (0-3) Urine WBC 1-3 /hpf /hpf (0-3) Ur Epithelial Cells 1+ /lpf /lpf (NONE-1+) Urine Bacteria TRACE /hpf H /hpf (NONE SEEN) Urine Glucose NEGATIVE (NEGATIVE) 06/06/18 19:25 WBC 7.70 10^3/uL 10^3/uL (3.80-9.50) RBC 4.57 10^6/uL 10^6/uL (4.18-5.33) Hgb 14.0 g/dL g/dL (12.6-16.3) Hct 39.7 % % (38.0-47.0) MCV 86.9 fL fL (81.5-99.8) MCH 30.6 pg pg (27.9-34.1) MCHC 35.3 g/dL g/dL (32.4-36.7) RDW 12.6 % % (11.5-15.2) Plt Count 217 10^3/uL 10^3/uL (150-400) MPV 11.2 fL fL (8.7-11.7) Neut % (Auto) 68.7 % % (39.3-74.2) Lymph % (Auto) 18.3 % % (15.0-45.0) Alexander % (Auto) 6.9 % % (4.5-13.0) Eos % (Auto) 5.3 % % (0.6-7.6) Baso % (Auto) 0.5 % % (0.3-1.7) Nucleat RBC Rel Count 0.0 % % (0.0-0.2) Absolute Neuts (auto) 5.29 10^3/uL 10^3/uL (1.70-6.50) Absolute Lymphs (auto) 1.41 10^3/uL 10^3/uL (1.00-3.00) Absolute Monos (auto) 0.53 10^3/uL 10^3/uL (0.30-0.80) Absolute Eos (auto) 0.41 10^3/uL H 10^3/uL (0.03-0.40) Absolute Basos (auto) 0.04 10^3/uL 10^3/uL (0.02-0.10) Absolute Nucleated RBC 0.00 10^3/uL 10^3/uL (0-0.01) Immature Gran % 0.3 % % (0.0-1.1) Immature Gran # 0.02 10^3/uL 10^3/uL (0.00-0.10) Sodium Potassium Chloride Carbon Dioxide Anion Gap BUN Creatinine Estimated GFR Glucose Calcium Total Bilirubin Conjugated Bilirubin Unconjugated Bilirubin AST ALT Alkaline Phosphatase Total Protein Albumin Lipase Beta HCG, Qual Urine Color Urine Appearance Urine pH Ur Specific [place] Urine Protein Urine Ketones Urine Blood Urine Nitrate Urine Bilirubin Urine Urobilinogen Ur Leukocyte Esterase Urine RBC Urine WBC Ur Epithelial Cells Urine Bacteria Urine Glucose Medications Given: Discontinued Medications Sodium Chloride (Ns) 1,000 mls @ 0 mls/hr IV EDNOW ONE; Wide Open PRN Reason: Protocol Stop: 06/06/18 19:32 Last Admin: 06/06/18 19:41 Dose: 1,000 mls Morphine Sulfate (Morphine) 4 mg IVP EDNOW ONE Stop: 06/06/18 19:32 Last Admin: 06/06/18 19:41 Dose: 4 mg Ondansetron HCl (Zofran) 4 mg IVP EDNOW ONE Stop: 06/06/18 19:32 Last Admin: 06/06/18 19:40 Dose: 4 mg Departure - Departure Disposition: Home, Routine, Self-Care Clinical Impression: Acute pelvic pain, female, Polycystic ovaries Condition: Good Instructions: Naproxen (By mouth), Oxycodone/Acetaminophen (By mouth), Polycystic Ovarian Syndrome (ED), Pelvic Pain in Women (ED) Additional Instructions: 1. Medications as prescribed as needed 2. Keep your appointment with your tail trimmer on Monday as scheduled 3. Return here for any sudden change in pain, fever, nausea vomiting or any worsening of symptoms overall Referrals: ELIEZER PORTILLO [Other] - As per Instructions Nicky Sheridan MD [Medical Doctor] - As per Instructions Prescriptions: Naproxen [Naprosyn] 500 mg PO BID #20 tablet oxyCODONE HCL/ACETAMINOPHEN [Percocet 5-325 mg Tablet] 1 each PO Q4-6PRN PRN #9 tablet PRN Reason: Pain, Breakthrough
[2018-06-06] MEDS ORDERED: NS 1,000 ML IV ONE (19:31)
[2018-06-06] MEDS ORDERED: ONDANSETRON 4 MG/2 ML VIAL IVP ONE (19:31)
[2018-06-06 19:34] LABS: PLATELET COUNT 217 10^3/uL (150-400)
[2018-06-06] MEDS ORDERED: PHENAZOPYRIDINE HCL 200 MG TAB PO ONE (21:42)
[2018-06-06] MEDS ORDERED: OXYCODONE/APAP 5/325MG PREPACK#4 BTL TAKEHOME ONE (21:42)
[2018-06-06 22:19] VITALS: BP 125/75
== END 2018-06-06 22:18 | disposition home or self-care (01) ==
DX: E28.2 Polycystic ovarian syndrome (principal); E86.9 Volume depletion, unspecified; Z85.41 Personal history of malignant neoplasm of cervix uteri; Z85.42 Personal history of malignant neoplasm of other parts of uterus; Z98.51 Tubal ligation status
CPT/HCPCS: 96374; J2270; J2405

== ENCOUNTER 2018-08-14 07:04 | Emergency (ER) | payer MEDICAID ==
--- NOTE | 2018-08-14 07:27 | EDPHY ---
H & P Stated Complaint: cough, congestion Time Seen by Provider: 08/14/18 07:23 HPI/ROS: CHIEF COMPLAINT: Cough, nasal congestion HISTORY OF PRESENT ILLNESS: The patient presents to the ED with a several day history of a productive cough with change in sputum color. The patient reports rhinorrhea which is also changed in color. The patient reports mild dyspnea. She denies any abdominal pain, nausea or vomiting. REVIEW OF SYSTEMS: A comprehensive 10 point review of systems is otherwise negative aside from elements mentioned in the history of present illness. Source: Patient Exam Limitations: No limitations - Personal History LMP (Females 10-55): Over 28 Days Ago Current Tetanus/Diphtheria Vaccine: Yes Current Tetanus Diphtheria and Acellular Pertussis (TDAP): Yes - Medical/Surgical History Hx Asthma: No Hx Chronic Respiratory Disease: No Hx Diabetes: No Hx Cardiac Disease: No Hx Renal Disease: No Hx Cirrhosis: No Hx Alcoholism: No Hx HIV/AIDS: No Hx Splenectomy or Spleen Trauma: No Other PMH: PMHx: RA, IBS. PSHx: 2 c sections, tubal ligation, LEAP x 2 - Social History Smoking Status: Never smoked - Physical Exam Exam: General Appearance: Alert, no distress Eyes: Pupils equal and round no pallor or injection ENT, Mouth: Mucous membranes moist Respiratory: Scant expiratory wheezing, lungs clear to auscultation Cardiovascular: Regular rate and rhythm Gastrointestinal: Abdomen is soft and nontender, no masses, bowel sounds normal Neurological: 5/5 strength all 4 extremities Skin: Warm and dry, no rashes, several tattoos Musculoskeletal: Neck is supple nontender Extremities: symmetrical, full range of motion Constitutional: Initial Vital Signs Temperature (C) 37 C 08/14/18 07:09 Heart Rate 68 08/14/18 07:09 Respiratory Rate 18 08/14/18 07:09 Blood Pressure 130/73 H 08/14/18 07:09 O2 Sat (%) 95 08/14/18 07:09 O2 Delivery Mode Room Air Allergies/Adverse Reactions: Penicillins Allergy (Verified 08/14/18 07:08) Sulfa (Sulfonamide Antibiotics) Allergy (Verified 08/14/18 07:08) Home Medications: Medication Instructions Recorded Albuterol [Proventil Inhaler HFA 1 - 2 puffs IH Q4H #1 mdi 08/14/18 (*)] Hydrocodone-Acetamin 5-325 mg 08/14/18 Medical Decision Making - Diagnostics Imaging Results: Chest x-ray PA lateral: Images reviewed by myself. Findings include normal lung parenchyma, normal heart size, no effusion or infiltrate. Impression: Normal chest x-ray ED Course/Re-evaluation: The patient presents to the ED with congestion and cough. The patient did receive a DuoNeb breathing treatment. The patient's chest x-ray demonstrates no evidence of an obvious pneumonia. There is no indication for antibiotics. The patient will be given a prescription for an albuterol inhaler. She is advised to use Tylenol and ibuprofen as needed for pain. The patient is discharged home with customary aftercare instructions and return precautions. Differential Diagnosis: Differential diagnosis considered includes asthma, bronchitis, pneumonia - Data Points Medications Given: Discontinued Medications Albuterol/Ipratropium (Duoneb) 3 ml IH EDNOW ONE Stop: 08/14/18 07:30 Last Admin: 08/14/18 07:55 Dose: 3 ml Departure - Departure Disposition: Home, Routine, Self-Care Clinical Impression: Acute bronchitis Condition: Good Instructions: Acute Bronchitis (ED) Additional Instructions: 1. Tylenol and ibuprofen as needed for pain and fever. 2. Please use albuterol inhaler 2 puffs every 4 hr as needed for cough. 3. Your chest x-ray demonstrates no evidence of an obvious pneumonia. There is no indication for antibiotics to treat what is likely a viral infection. 4. Please return to the ED for markedly worsening symptoms or other concerns. 5. Rest, drink plenty of fluids Referrals: ELIEZER PORTILLO [Other] - As per Instructions Prescriptions: Albuterol [Proventil Inhaler HFA (*)] 1 - 2 puffs IH Q4H #1 mdi
[2018-08-14] MEDS ORDERED: IPRATROPIUM/ALBUTEROL 3 ML DEYVIAL IH ONE (07:29)
[2018-08-14 08:27] VITALS: BP 132/95
== END 2018-08-14 08:25 | disposition home or self-care (01) ==
DX: J20.9 Acute bronchitis, unspecified (principal)

== ENCOUNTER 2018-08-18 17:09 | Emergency (ER) | payer MEDICAID ==
[2018-08-18] MEDS ORDERED: HYDROCODONE/APAP 5/325 TAB PO ONE (17:38)
--- NOTE | 2018-08-18 17:41 | EDPHY ---
H & P Smoking Status: Never smoked Time Seen by Provider: 08/18/18 17:20 HPI/ROS: CHIEF COMPLAINT: Vaginal pain and dysuria HISTORY OF PRESENT ILLNESS: The patient is a 27-year-old female with a history of ovarian cysts and vaginitis presents with approximately 5 days of vaginal burning and pain with urination. She reports a slightly whitish discharge for the last 2 days. Yesterday evening she went to do different emergency rooms including a [place] and [facility] and was diagnosed with vaginitis and discharged with Flagyl. She denies any history of STDs. She states she was seen here approximately 1 year ago for the"exact same symptoms"and diagnosed with bacterial vaginosis but was also given treatment for a fungal infection. She states these symptoms resolved after treatment with Flagyl and fluconazole. Additionally she was diagnosed with ovarian cyst and followed up with an OBGYN who recommended taking control but she does not want to take control so was following up with a holistic doctor later this week. She states she was given nothing for pain REVIEW OF SYSTEMS: Constitutional: No fever, no chills. Eyes: No discharge. ENT: No sore throat. Cardiovascular: No chest pain, no palpitations. Respiratory: No cough, no shortness of breath. Gastrointestinal: + abdominal pain, no vomiting. Genitourinary: No hematuria. Musculoskeletal: No back pain. Skin: No rashes. Neurological: No headache. (Hung Diza) Physical Exam: General Appearance: Alert and no distress. Eyes: Pupils equal and round no injection. Respiratory: Chest is nontender, lungs are clear to auscultation. Cardiac: regular rate and rhythm. Gastrointestinal: Abdomen is soft with suprapubic tenderness. No peritoneal signs. No right lower quadrant or left lower quadrant tenderness. The no masses, bowel sounds normal. Musculoskeletal: Neck is supple and nontender. Extremities have full range of motion and are nontender. Skin: No rashes or lesions. (Hung Diaz) Constitutional: Initial Vital Signs Temperature (C) 36.7 C 08/18/18 17:15 Heart Rate 71 08/18/18 17:15 Respiratory Rate 18 08/18/18 17:15 Blood Pressure 132/96 H 08/18/18 17:15 O2 Sat (%) 97 08/18/18 17:15 O2 Delivery Mode Room Air Allergies/Adverse Reactions: Penicillins Allergy (Verified 08/18/18 17:12) Sulfa (Sulfonamide Antibiotics) Allergy (Verified 08/18/18 17:12) Home Medications: Medication Instructions Recorded Flagyl 08/18/18 Fluconazole 08/18/18 Hydrocodone-Acetamin 5-300 mg 08/18/18 Hydrocodone/Acetaminophen [[place] 1 tab PO Q6 PRN #8 tab 08/18/18 5/325 (*)] Naproxen 08/18/18 Phenazopyridine HCl [Pyridium] 100 mg PO TID #9 tab 08/18/18 Medical Decision Making ED Course/Re-evaluation: Patient here with dysuria and vaginal pain for the last few days. She is appropriately being treated with fluconazole and Flagyl. Ultrasound performed showing no tubo-ovarian abscess or ovarian cyst or other acute abnormality. She is not . Gonorrhea chlamydia was sent. (Hung Diaz) The patient was evaluated and managed by the physician librarian assistant. I have reviewed this chart and I agree with the findings and plan of care as documented , as indicated by my signature. I am the secondary supervising physician. ( Kate Estes) Differential Diagnosis: Tubo-ovarian abscess, of ovarian cysts, endometriosis, appendicitis, pelvic inflammatory disease (Hung Diaz) - Data Points Laboratory Results: Laboratory Results 08/18/18 17:50 08/18/18 17:50 Medications Given: Discontinued Medications Hydrocodone Bitart/Acetaminophen ([place] 5/325) 1 tab PO EDNOW ONE Stop: 08/18/18 17:39 Last Admin: 08/18/18 18:00 Dose: 1 tab Fluconazole (Diflucan) 150 mg PO EDNOW ONE Stop: 08/18/18 17:58 Last Admin: 08/18/18 18:00 Dose: Not Given Sodium Chloride (Ns) 1,000 mls @ 0 mls/hr IV ONCE ONE; Wide Open PRN Reason: Protocol Stop: 08/18/18 17:54 Last Admin: 08/18/18 17:59 Dose: 1,000 mls Ondansetron HCl (Zofran) 4 mg IVP EDNOW ONE Stop: 08/18/18 18:32 Last Admin: 08/18/18 18:33 Dose: 4 mg Point of Care Test Results: Urine Dip Specific [place] (1.002-1.030) 1.010 PH (5.0-7.5) 7.0 Leukocytes (Negative) Negative Nitrites (Negative) Negative Protein (Negative) Trace Glucose (Negative) Negative Ketones (Negative) Trace Urobilnogen (0.2-1.0 EU) 0.2 Bilirubin (Negative) Negative Blood (Negative) Negative Departure - Departure Disposition: Home, Routine, Self-Care Clinical Impression: Vaginitis Condition: Good Instructions: Vaginitis (ED) Additional Instructions: Continue taking Flagyl until complete. Follow-up with fabric worker supervisor within the next week. We will call you if you're gonorrhea chlamydia tests are positive. Referrals: NONE *PRIMARY CARE P,. [Primary Care Provider] - As per Instructions Nicky Sheridan MD [Medical Doctor] - As per Instructions Prescriptions: Hydrocodone/Acetaminophen [[place] 5/325 (*)] 1 tab PO Q6 PRN #8 tab PRN Reason: Pain, Moderate Phenazopyridine HCl [Pyridium] 100 mg PO TID #9 tab
[2018-08-18] MEDS ORDERED: NS 1,000 ML IV ONE (17:53)
[2018-08-18] MEDS ORDERED: FLUCONAZOLE 150 MG TAB ONE (17:56)
[2018-08-18] MEDS ORDERED: FLUCONAZOLE 150 MG TAB PO ONE (17:57)
[2018-08-18 18:03] LABS: PLATELET COUNT 244 10^3/uL (150-400)
[2018-08-18] MEDS ORDERED: ONDANSETRON 4 MG/2 ML VIAL IVP ONE (18:31)
[2018-08-18 19:15] VITALS: BP 136/84
[2018-08-19] MEDS ORDERED: FLUCONAZOLE 40 MG/ML UDSYR PO ONE (17:38)
== END 2018-08-18 19:15 | disposition home or self-care (01) ==
DX: N76.0 Acute vaginitis (principal); E86.9 Volume depletion, unspecified
CPT/HCPCS: 96374; J2405

== ENCOUNTER 2018-08-21 16:59 | Emergency (ER) | payer MEDICAID ==
--- NOTE | 2018-08-21 17:25 | EDPHY ---
H & P Time Seen by Provider: 08/21/18 17:25 HPI/ROS: CHIEF COMPLAINT: Pain with urination HISTORY OF PRESENT ILLNESS: A personally saw this patient 2 days ago she presented with pain with urination and lower abdominal pain. She had been seen at to ERs in the previous 24 hr and diagnosis with bacterial vaginosis and candidal vaginitis. She was already taking Flagyl and fluconazole. UA was negative for UTI. She is taking her prescriptions as prescribed and reports no improvement of her pain and in fact worsening pain with urination. Pruritic knee was prescribed and she she felt this improved her pain but has run out of the prescription. She denies any flank pain or fever. REVIEW OF SYSTEMS: Constitutional: No fever, no chills. Eyes: No discharge. ENT: No sore throat. Cardiovascular: No chest pain, no palpitations. Respiratory: No cough, no shortness of breath. Gastrointestinal: No abdominal pain, no vomiting. Genitourinary: No hematuria. Musculoskeletal: No back pain. Skin: No rashes. Neurological: No headache. Past Medical/Surgical History: CHIEF COMPLAINT: [ ] HISTORY OF PRESENT ILLNESS: [ ] REVIEW OF SYSTEMS: Constitutional: No fever, no chills. Eyes: No discharge. ENT: No sore throat. Cardiovascular: No chest pain, no palpitations. Respiratory: No cough, no shortness of breath. Gastrointestinal: No abdominal pain, no vomiting. Genitourinary: No hematuria. Musculoskeletal: No back pain. Skin: No rashes. Neurological: No headache. Smoking Status: Never smoked Physical Exam: General Appearance: Alert and no distress. Eyes: Pupils equal and round no injection. Respiratory: Chest is nontender, lungs are clear to auscultation. Cardiac: regular rate and rhythm. Gastrointestinal: Abdomen is soft and nontender, no masses, bowel sounds normal. Musculoskeletal: Neck is supple and nontender. Extremities have full range of motion and are nontender. Skin: No rashes or lesions. [ ] Constitutional: Initial Vital Signs Temperature (C) 36.6 C 08/21/18 17:06 Heart Rate 62 08/21/18 17:06 Respiratory Rate 16 08/21/18 17:06 Blood Pressure 127/80 H 08/21/18 17:06 O2 Sat (%) 98 08/21/18 17:06 O2 Delivery Mode Room Air Allergies/Adverse Reactions: Penicillins Allergy (Verified 08/21/18 17:06) Sulfa (Sulfonamide Antibiotics) Allergy (Verified 08/21/18 17:06) Home Medications: Medication Instructions Recorded Flagyl 08/18/18 Fluconazole 08/18/18 Hydrocodone-Acetamin 5-300 mg 08/18/18 Hydrocodone/Acetaminophen [[place] 1 tab PO Q6 PRN #8 tab 08/18/18 5/325 (*)] Naproxen 08/18/18 Phenazopyridine HCl [Pyridium] 100 mg PO TID #9 tab 08/18/18 Nitrofurantoin Monohyd/M-Cryst 100 mg PO BID 7 Days #14 capsule 08/21/18 [Macrobid 100 mg Capsule] Phenazopyridine HCl [Pyridium] 100 mg PO TID PRN #6 tab 08/21/18 Tramadol HCl 50 mg PO TID PRN #12 tablet 08/21/18 Medical Decision Making ED Course/Re-evaluation: Today urinalysis reveals nitrite and leuk esterase consistent with UTI. We will have her complete her Flagyl and fluconazole for prior diagnoses and started on Macrobid for UTI. 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 I considered PID, ectopic , appendicitis, tubo-ovarian abscess. - Data Points Laboratory Results: 08/21/18 17:14 Urine Color [place] Urine Appearance CLEAR Urine pH 6.0 (5.0-7.5) Ur Specific [place] 1.011 (1.002-1.030) Urine Protein NEGATIVE (NEGATIVE) Urine Ketones NEGATIVE (NEGATIVE) Urine Blood 3+ H (NEGATIVE) Urine Nitrate POSITIVE H (NEGATIVE) Urine Bilirubin NEGATIVE (NEGATIVE) Urine Urobilinogen 4.0 EU H EU (0.2-1.0) Ur Leukocyte Esterase NEGATIVE (NEGATIVE) Urine RBC 1-3 /hpf /hpf (0-3) Urine WBC 0-1 /hpf /hpf (0-3) Ur Epithelial Cells TRACE /lpf /lpf (NONE-1+) Urine Glucose NEGATIVE (NEGATIVE) Medications Given: Discontinued Medications Doxycycline Hyclate (Vibramycin 100 Mg Prepack#2) 1 btl TAKEHOME EDNOW ONE Stop: 08/21/18 17:33 Last Admin: 08/21/18 18:06 Dose: Not Given Doxycycline Hyclate (Doxycycline Hyclate) 100 mg PO EDNOW ONE PRN Reason: Protocol Stop: 08/21/18 17:33 Last Admin: 08/21/18 18:06 Dose: Not Given Nitrofurantoin Macrocrystals (Macrobid) 100 mg PO EDNOW ONE PRN Reason: Protocol Stop: 08/21/18 18:14 Last Admin: 08/21/18 18:20 Dose: 100 mg Phenazopyridine HCl (Pyridium) 200 mg PO EDNOW ONE Stop: 08/21/18 18:14 Last Admin: 08/21/18 18:19 Dose: 200 mg Point of Care Test Results: Urine Collection Date 08/21/18 HCG Results Negative Departure - Departure Disposition: Home, Routine, Self-Care Clinical Impression: UTI (urinary tract infection) Condition: Good Instructions: Urinary Tract Infection in Women (DC) Additional Instructions: Complete her course of fluconazole and Flagyl as previously instructed. Start Macrobid twice a day for 7 days for urinary tract infection. Keep her appointment with glass production machine operator. Return to the ER for worsening or worrisome symptoms. Referrals: NONE *PRIMARY CARE P,. [Primary Care Provider] - As per Instructions Stand Alone Forms: School Excuse Prescriptions: Nitrofurantoin Monohyd/M-Cryst [Macrobid 100 mg Capsule] 100 mg PO BID 7 Days # 14 capsule Phenazopyridine HCl [Pyridium] 100 mg PO TID PRN #6 tab PRN Reason: Pain, Moderate Tramadol HCl 50 mg PO TID PRN #12 tablet PRN Reason: Pain, Moderate
[2018-08-21] MEDS ORDERED: DOXYCYCLINE HYCLATE 100 MG CAP/TAB PO ONE (17:32)
[2018-08-21] MEDS ORDERED: DOXYCYCLINE 100 MG PREPACK#2 BTL TAKEHOME ONE (17:32)
[2018-08-21 18:10] VITALS: BP 134/87
[2018-08-21] MEDS ORDERED: PHENAZOPYRIDINE HCL 200 MG TAB PO ONE (18:13)
[2018-08-21] MEDS ORDERED: NITROFURANTOIN MACROBID 100 MG CAP PO ONE (18:13)
== END 2018-08-21 18:24 | disposition home or self-care (01) ==
DX: N39.0 Urinary tract infection, site not specified (principal); Z88.0 Allergy status to penicillin; Z88.2 Allergy status to sulfonamides

== ENCOUNTER 2018-09-10 09:53 | Emergency (ER) | payer MEDICAID ==
[2018-09-10 09:59] VITALS: BP 126/74
--- NOTE | 2018-09-10 10:10 | EDPHY ---
H & P Stated Complaint: N/V/abd and rectal pain Time Seen by Provider: 09/10/18 10:01 HPI/ROS: CHIEF COMPLAINT: Intractable nausea vomiting abdominal pain since this morning HISTORY OF PRESENT ILLNESS: 27-year-old female via private vehicle complaining of intractable nausea vomiting abdominal pain since this morning. No antecedent symptoms. No chest pain. No dyspnea. No back pain. No trauma. No urinary abnormality. REVIEW OF SYSTEMS: 10 systems reviewed and negative with the exception of the elements mentioned in the history of present illness PAST MEDICAL & SURGICAL HISTORY: x3 SOCIAL HISTORY: Chronic marijuana use PHYSICAL EXAM (Prior to examination, patient consented to physical exam, hands were washed and my usual and customary physical exam procedures followed) 1) GENERAL: [Well-developed, well-nourished, alert and oriented. He appears uncomfortable, lying in a left lateral recumbent position, will not movement will not allow me to examine her This examination is limited as patient will not allow me to examine her , will not allow me to palpate her abdomen until she received analgesia and antiemetic DIFFERENTIAL DIAGNOSIS: My differential diagnosis includes, but is not limited to, acute appendicitis, acute cholecystitis, bowel obstruction, acute pancreatitis, ovarian torsion, ectopic , gastritis and urinary tract infection. The patient understands that this diagnosis is provisional and can never be 100% accurate. This is a partial list of diagnoses considered. These considerations are based on history, physical exam, past history and reassessment. - Personal History LMP (Females 10-55): 22-28 Days Ago Current Tetanus Diphtheria and Acellular Pertussis (TDAP): Yes - Medical/Surgical History Hx Asthma: No Hx Chronic Respiratory Disease: No Hx Diabetes: No Hx Cardiac Disease: No Hx Renal Disease: No Hx Cirrhosis: No Hx Alcoholism: No Hx HIV/AIDS: No Hx Splenectomy or Spleen Trauma: No Other PMH: PMHx: RA, IBS. PSHx: 2 c sections, tubal ligation, LEAP x 2 - Social History Smoking Status: Never smoked Constitutional: Initial Vital Signs Temperature (C) 36.8 C 09/10/18 09:54 Heart Rate 68 09/10/18 09:54 Respiratory Rate 24 H 09/10/18 09:54 Blood Pressure 126/74 H 09/10/18 09:54 O2 Sat (%) 100 09/10/18 09:54 O2 Delivery Mode Room Air Allergies/Adverse Reactions: Penicillins Allergy (Severe, Verified 09/10/18 10:00) Anaphylaxis Sulfa (Sulfonamide Antibiotics) Allergy (Severe, Verified 09/10/18 10:00) Anaphylaxis Home Medications: Medication Instructions Recorded NK [No Known Home Meds] 09/10/18 Medical Decision Making ED Course/Re-evaluation: 10:15 a.m.: I reviewed the patient's old medical records. She will not allow me to examine her at this time. She has history of chronic marijuana use. Will obtain diagnostic studies as well as administer IV fluids and IV Haldol. 11:20 a.m.: I walked in to the patient's room to re-evaluate the patient and was informed by nursing staff that a few minutes previously the patient had pulled her IV and had walked out of the ER without informing ER staff or myself. I saw this patient independently based on established practice protocols. Care of patient under supervision of secondary supervising physician Dr Juan Mccauley . - Data Points Laboratory Results: Laboratory Results 09/10/18 10:22 09/10/18 10:22 09/10/18 09/10/18 09/10/18 10:22 10:22 10:22 WBC 12.96 10^3/uL H 10^3/uL (3.80-9.50) RBC 4.40 10^6/uL 10^6/uL (4.18-5.33) Hgb 13.4 g/dL g/dL (12.6-16.3) Hct 38.1 % % (38.0-47.0) MCV 86.6 fL fL (81.5-99.8) MCH 30.5 pg pg (27.9-34.1) MCHC 35.2 g/dL g/dL (32.4-36.7) RDW 12.1 % % (11.5-15.2) Plt Count 241 10^3/uL 10^3/uL (150-400) MPV 10.9 fL fL (8.7-11.7) Neut % (Auto) 79.6 % H % (39.3-74.2) Lymph % (Auto) 9.2 % L % (15.0-45.0) [place] % (Auto) 5.6 % % (4.5-13.0) Eos % (Auto) 4.9 % % (0.6-7.6) Baso % (Auto) 0.4 % % (0.3-1.7) Nucleat RBC Rel Count 0.0 % % (0.0-0.2) Absolute Neuts (auto) 10.31 10^3/uL H 10^3/uL (1.70-6.50) Absolute Lymphs (auto) 1.19 10^3/uL 10^3/uL (1.00-3.00) Absolute Monos (auto) 0.73 10^3/uL 10^3/uL (0.30-0.80) Absolute Eos (auto) 0.64 10^3/uL H 10^3/uL (0.03-0.40) Absolute Basos (auto) 0.05 10^3/uL 10^3/uL (0.02-0.10) Absolute Nucleated RBC 0.00 10^3/uL 10^3/uL (0-0.01) Immature Gran % 0.3 % % (0.0-1.1) Immature Gran # 0.04 10^3/uL 10^3/uL (0.00-0.10) Sodium 141 mEq/L mEq/L (135-145) Potassium 3.5 mEq/L mEq/L (3.3-5.0) Chloride 101 mEq/L mEq/L (97-110) Carbon Dioxide 26 mEq/l mEq/l (22-31) Anion Gap 14 mEq/L mEq/L (6-14) BUN 17 mg/dL mg/dL (7-23) Creatinine 0.8 mg/dL mg/dL (0.6-1.0) Estimated GFR > 60 Glucose 115 mg/dL H mg/dL (70-100) Calcium 10.3 mg/dL mg/dL (8.5-10.4) Total Bilirubin 0.5 mg/dL mg/dL (0.1-1.4) Conjugated Bilirubin 0.2 mg/dL mg/dL (0.0-0.5) Unconjugated Bilirubin 0.3 mg/dL mg/dL (0.0-1.1) AST 23 IU/L IU/L (14-46) ALT 17 IU/L IU/L (9-52) Alkaline Phosphatase 75 IU/L IU/L (38-126) Total Protein 7.7 g/dL g/dL (6.3-8.2) Albumin 4.7 g/dL g/dL (3.5-5.0) Lipase 54 IU/L IU/L (23-300) Beta HCG, Qual NEGATIVE Medications Given: Discontinued Medications Haloperidol Lactate (Haldol Injection) 2.5 mg IVP EDNOW ONE Stop: 09/10/18 10:32 Last Admin: 09/10/18 10:39 Dose: 2.5 mg Ondansetron HCl (Zofran) 4 mg IVP EDNOW ONE Stop: 09/10/18 10:28 Last Admin: 09/10/18 10:39 Dose: 4 mg Departure - Departure Disposition: Against Medical Advice Clinical Impression: Abdominal pain Qualifiers: Abdominal location: generalized Qualified Code(s): R10.84 - Generalized abdominal pain Referrals: NONE *PRIMARY CARE P,. [Primary Care Provider] - As per Instructions
[2018-09-10] MEDS ORDERED: ONDANSETRON 4 MG/2 ML VIAL IVP ONE (10:27)
[2018-09-10 10:29] LABS: PLATELET COUNT 241 10^3/uL (150-400)
[2018-09-10] MEDS ORDERED: HALOPERIDOL LACT 5 MG/ML INJ IVP ONE (10:31)
== END 2018-09-10 11:28 | disposition left against medical advice (07) ==
DX: R10.84 Generalized abdominal pain (principal); R11.2 Nausea with vomiting, unspecified
CPT/HCPCS: 96374; J1630; J2405